=== PATIENT | male | born 1950 | race Caucasian/White ===

== ENCOUNTER 2018-07-04 15:46 | Inpatient (IN) | payer MEDICARE, MEDICAID ==
[~2018-07-04] VITALS: Ht 180.3 cm; Wt 126.0 kg
[~2018-07-04 15:46] MED LIST: CLINDAMYCIN HC300 MG PO; CLONIDINE HCL0.1 MG PO; DIAZEPAM5 MG PO; HYDROCHLOROTHIA25 MG PO; METFORMIN HCL500 MG PO; METHOCARBAMOL750 MG PO; NORCO 5-325 TA1 EACH PO; NORCO 7.5-3251 EACH PO; PERCOCET 5-3251 EACH PO; ULTRAM50 MG PO; [UNRECOGNIZED DRUG - REMARK]; [UNRECOGNIZED DRUG - REMARK]
--- NOTE | 2018-07-04 19:05 | NUR ---
PT ADMITTED TO ROOM 127. PT WAS ABLE TO TRANSFER HIMSELF TO THE BED FROM THE STRETCHER. PT SHORT OF BREATH WITH EXERTION. PT ON BIPAP AT FIO2 28%, SETTINGS 15/5. PT WAS ABLE TO STAND AT THE BEDSIDE AND USE THE URINAL. PT STATED "THE AIR IS TO HOT ON THE MASK". CALLED RT AND TURNED OFF HEAT PER RESPIRATORY THERAPY. VITALS COMPLETED. WILL CONTINUE TO CLOSELY MONITOR.
--- NOTE | 2018-07-04 19:15 | NUR ---
PT REPORT GIVEN TO PERFORATOR TYPIST RN. AWAITING MD ORDERS. NO OTHER QUESTIONS AT THIS TIME. WILL CONTINUE TO CLOSELY MONITOR.
--- NOTE | 2018-07-04 19:57 | NUR ---
HAD BIPAP ON AND ASKING THAT PRESSURE BE DECREASED. MASK OFF FOR BREAK AND TO OBTAIN HEALTH HISTORY. 02 2L NC APPLIED. STATES FEELS LIKE BREATHING IS BETTER BUT STILL HAS INCREASED WORK OF BREATHING. GIVEN SIPS WATER FOR COMFORT, INFORMED OF FLUID RESTRICTION. RT HERE FOR TO DO EKG, ALSO ADJUSTING BIPAP FOR PT COMFORT.
--- NOTE | 2018-07-04 20:56 | NUR ---
PT TO CCU PER BED, REPORT RECIEVED FROM MIRIAN GHOTRA. PT ALERT ORIENTED X3. NO C/O. DR THRASHER IN DEPT. WILL HOLD CARDIZEM GTT FOR NOW AND CONT TO MONITOR HR. PT INFORMED OF THIS. HAS FEW SCATTERED EXP WHEEZES THROGHOUT.
--- NOTE | 2018-07-04 22:02 | NUR ---
PT WAS NOTED TO BREATH EASIER WHEN SITTING AT SIDE OF BED. STATES SOMETIMES SLEEPS IN RECLINER. ABLE TO WALK AROUND BED TO RECLINER WITHOUT SOB. SAT IN RECLINER FOR ABOUT 1 HR AND ATE SANDWICH. BACK TO BED. HR 100-115.
--- NOTE | 2018-07-04 22:35 | NUR ---
PT ASLEEP, LAYING ON SIDE. SATS DECREASED TO 81%, 02 TITRATED UP TO 5LNC, SATS NOW 92-93%.
--- NOTE | 2018-07-04 23:48 | NUR ---
UP AT BEDSIDE TO VOID, PT THEN FELL ASLEEP SITTING AT SIDE OF BED. AWAKENS EASILY BUT FALLS BACK TO SLEEP QUICKLY. TALKED TO PT, TOLD HE CAN'T SLEEP AT SITTING AT SIDE OF BED IN CASE HE FALLS. PT AGREES. BACK TO CHAIR. NEITHER CHAIR NOR BED ARE COMFORTABLE FOR PT.
--- NOTE | 2018-07-05 01:12 | NUR ---
SLEEPING IN RECLINER.HR 80-100. RR 14-16.
--- NOTE | 2018-07-05 03:11 | NUR ---
HAS BEEN SLEEPING SOUNDLY IN RECLINER. AWAKE TO VOID. JENNA STANDING WELL. STATES HASN'T SLEPT WELL FOR ABOUT 2 WEEKS. HAS HAD FAMILY ISSUES THAT HAVE DISTRESSED PT. PT DOES NOT ELABORATE. PT IS ALSO VERY HARD OF HEARING SO COMMUNICATION IS DIFFICULT. FRIEND TO BRING GLASSESS AND HEARING AIDS LATER TODAY. PT CONT TO BE IN RECLINER AND FELL BACK TO SLEEP QUICKLY.
--- NOTE | 2018-07-05 03:36 | NUR ---
PT NOTED TO BE OCC COUGHING, CLEARING THROAT IN SLEEP. PT AWAKENED AND CALLED NURSE. STATED HE WAS CONFUSED, HAD AWAKENED AND DIDN'T KNOW WHERE HE WAS AND NEEDING TO GET OUT. PT CLEARED TALKING WITH STAFF. RT CALLED. PT STATES HE IS TOO CLAUSTROPHOBIC TO WEAR BIPAP. RT KYLE ASSISTED PT TO SLEEP LEANING FORWARD ON PILLOWS ON TRAY TABLE. THIS ALLOWS FOR LESS PRESSURE FROM LARGE ABD.
--- NOTE | 2018-07-05 03:53 | NUR ---
PT SLEEPING NEARLY SITTING UP,SLIGHTLY FORWARD. NOTED TO HAVE PERIODS OF APNEA LASTING GREATER THAN 30 SEC. SATS STAY HIGH 90'S.
--- NOTE | 2018-07-05 05:16 | NUR ---
IS ASLEEP LAYING BACK IN CHAIR. IS NOT HAVING PERIODS OF APNEA AT THIS TIME.
--- NOTE | 2018-07-05 05:39 | NUR ---
AWAKE, C/O L HAND CRAMPING, EASED WITH MOVEMENT AND GIVEN WARM BLANKET. C/O BEING HUNGRY THEN FELL BACK TO SLEEP.
--- NOTE | 2018-07-05 06:03 | NUR ---
STOOD TO VOID. BACK IN CHAIR, WILL FALL ASLEEP SUDDENLY, ROCK AND HAVE SLIGHT MUSCLE TWITCHING AND THEN AWAKEN. NOTED TO HAVE PERIODS OF APNEA ALSO. STRING CHEESE AT BEDSIDE FOR WHEN PT AWAKE HE STATES HE IS HUNGRY. NO FURTHER CRAMPING IN HAND.
--- NOTE | 2018-07-05 06:28 | NUR ---
DR THRASHER CALLED WITH UPDATE OF PT'S APNEA AND EPISODES OF CONFUSION. WILL DO ABG'S. T CALLED.
--- NOTE | 2018-07-05 06:54 | NUR ---
ABG'S DRAWN. PT NOW LAYING DOWN IN BED. EXPLAINED TO PT THAT HE WOULD QUIT BREATHING IN SLEEP AND THAT BEST TX WOULD BE TO WEAR BIPAP. ALSO EXPLAINED THAT ELEVATED C02 WOULD MAKE PT CONFUSED. PT DOES NOT WANT TO WEAR BIPAP.
--- NOTE | 2018-07-05 08:05 | NUR ---
ASSESSMENT COMPLETED. PT UP IN CHAIR LEANING FORWARD ON BEDSIDE TABLE. PT IS VERY HARD OF HEARING WITHOUT HIS HEARING AIDES- REQUIRES THIS RN TO REPEAT MYSELF FREQUENTLY WHEN PT ISN'T ABLE TO HEAR WHAT I SAY. PT IS A/O X4, DENIES ANY PAIN, N/V OR SOB- STATES HE "JUST WANTS TO GET OUT OF HERE." PT APPEARS ANXIOUS. HE'S ON 2 L/MIN O2 VIA NC. LUNGS ARE CLEAR THROUGHOUT ALL LOBES WITH BLL SLIGHTLY DIMINISHED. PT'S ABDOMEN IS VERY ROUNDED AND FIRM WITH ACTIVE BOWEL SOUNDS- PT STATES HIS LAST BM WAS YESTERDAY. HR IS IRREGULAR AND PT IS AFIB ON CONTINUOUS TELE. BLE EDEMA- EDUCATION ON ELEVATING EXTREMITIES BUT PT REFUSES AT THIS TIME SINCE IT'S "EASIER TO BREATHE" SITTING FORWARD. EDUCATION ON ALL MEDICATIONS PROVIDED. URINAL AT HIS SIDE LASIX WAS JUST GIVEN. PT'S BREAKFAST HAS ARRIVED. HE DENIES ANY FURTHER NEEDS AT THIS TIME. CALL LIGHT WITHIN REACH. WILL CONTINUE TO MONITOR.
--- NOTE | 2018-07-05 09:00 | NUR ---
PT REMAINS UP IN HIS RECLINER AFTER FINISHING HIS BREAKFAST (OMELETTE, CORN FLAKES). HE DENIES ANY NEEDS. CALL LIGHT WITHIN REACH. WILL CONTINUE TO MONITOR.
--- NOTE | 2018-07-05 10:06 | NUR ---
PT HAS MOVED TO HIS BED FOR HIS ECHOCARDIOGRAM TO BE COMPLETED. PT EDUCATION ON THE TEST. HIS BROTHER HAS JUST VISITED THE BEDSIDE WELL AND HAS BEEN UPDATED ON HOW PT IS DOING. THIS RN ASKED HIM IF HE COULD BRING PT'S HEARING AIDES IN- HE CONTACTED PT'S ROOMMATE WHO STATES HE WILL BE BRINGING THEM AND HIS GLASSES LATER TODAY. CONSTRUCTION FIELD ENGINEER IN ROOM AND JUST STARTED ECHO. CALL LIGHT WITHIN REACH. WILL CONTINUE TO MONITOR.
[2018-07-05] MEDS ORDERED: DOXAZOSIN MESYLA8 MG PO (10:54)
[2018-07-05] MEDS ORDERED: AMLODIPINE BESYL5 MG PO (10:55)
[2018-07-05] MEDS ORDERED: PRAVASTATIN SOD20 MG PO (10:55)
[2018-07-05] MEDS ORDERED: CARVEDILOL25 MG PO (10:56)
[2018-07-05] MEDS ORDERED: METFORMIN HCL500 M1 PO (10:56)
--- NOTE | 2018-07-05 10:57 | NUR ---
MED REC COMPLETE
--- NOTE | 2018-07-05 11:00 | NUR ---
PT SITTING UP ON EDGE OF BED VISITING WITH HIS BROTHER. WARM BLANKET PROVIDED PER HIS REQUEST. DENIES ANY OTHER NEEDS. CALL LIGHT WITHIN REACH. WILL CONTINUE TO MONITOR.
--- NOTE | 2018-07-05 11:55 | NUR ---
PT SITTING UP RECLINER. ASSESSMENT COMPLETED. PT'S ROOMMATE HAS BROUGHT HIS HEARING AIDES AND GLASSES SO PT IS ABLE TO HEAR BETTER. REMAINS A/O X4, DENIES PAIN OR N/V. STATES HE'S HAVING SOME SOB. PT REMAINS ON 2 L/MIN O2 VIA NC. HIS LUNGS ARE CLEAR THROUGHOUT EXCEPT SOME FINE CRACKLES IN RLL. OTHERWISE, NO CHANGE TO ASSESSMENT. BOWEL MEDICATIONS GIVEN MID MORNING- AWAITING BM. OT HAS JUST ARRIVED TO WORK WITH PT. HE DENIES ANY NEEDS AT THIS TIME. CALL LIGHT WITHIN REACH. WILL CONTINUE TO MONITOR.
--- NOTE | 2018-07-05 12:05 | NUR ---
OT IN ROOM WORKING WITH PATIENT
--- NOTE | 2018-07-05 13:00 | NUR ---
PT HAS JUST FINISHED HIS LUNCH; HE REMAINS UP IN HIS RECLINER WITH NO CONCERNS OR REQUESTS. DENIES ANY NEEDS TO BE MET. CALL LIGHT WITHIN REACH. WILL CONTINUE TO MONITOR.
--- NOTE | 2018-07-05 14:14 | NUR ---
PATIENT WORKING WITH PT IN THE HALLWAY AT THIS TIME.
--- NOTE | 2018-07-05 15:00 | NUR ---
PT CURRENTLY SITTING UPRIGHT BUT BACK IN HIS CHAIR, WITH HIS EYES CLOSED, NAPPING. NO SIGNS OF PAIN OR DISCOMFORT. O2 SATS REMAIN STABLE AND NO APNEIC EPISODES HAVE OCCURRED. CALL LIGHT IS WITHIN REACH. WILL CONTINUE TO MONITOR.
--- NOTE | 2018-07-05 15:27 | EKG ---
[facility] [address] [place], [place] [address] Signed Atrial fibrillation with rapid ventricular response Abnormal ECG No previous ECGs available Confirmed by FRACISCO THRASHER DO ([id number]) on 07/05/2018 3:27:33 PM Electronically Signed By: FRACISCO THRASHER DO 07/05/18 1527 PATIENT NAME: ROHINI MCLEAN Electrocardiogram DATE OF : 54 PHYSICIAN: FRACISCO THRASHER DO REPORT #: [id number] REPORT IS CONFIDENTIAL AND NOT TO BE RELEASED WITHOUT AUTHORIZATION
--- NOTE | 2018-07-05 16:00 | NUR ---
ASSESSMENT COMPLETED AGAIN AT THIS TIME. PT REMAINS UP IN HIS RECLINER WATCHING TV. HE DENIES ANY PAIN OR N/V. WHEN ASKED HOW HIS BREATHING FEELS, HE STATES THAT IT "FEELS OKAY" AND THAT "IT FEELS BETTER" WHEN ASKED HOW HIS BREATHING FEELS IN COMPARISON TO THIS MORNING. PT WAS IN HIGH SPIRITS IN REGARDS TO HIS AMBULATION IN THE HALLWAY WITH PHYSICAL THERAPY THIS AFTERNOON. LUNG BASES BOTH HAVE FINE CRACKLES. 2 L/MIN O2 VIA NC REMAINS IN PLACE WITH ADEQUATE O2 SATS. ABDOMEN REMAINS THE SAME, NO BM HAS OCCURRED. PIV IN LEFT AC REMAINS WNL - LASIX AND SALINE FLUSH GIVEN WITHOUT COMPLICATION. VS REMAIN STABLE. BLE PITTING EDEMA REMAINS. PT HAS HIS HEARING AIDES IN SO HE'S EASIER TO COMMUNICATE WITH. EDUCATION GIVEN BUT NEEDS REINFORCEMENT. DENIES ANY NEEDS AT THIS TIME. CALL LIGHT WITHIN REACH. WILL CONTINUE TO MONITOR.
--- NOTE | 2018-07-05 17:10 | NUR ---
SOMEWHAT RESTLESS. NO FUTHER CHANGES.
--- NOTE | 2018-07-05 17:14 | NUR ---
DISCUSSED PT DC PLAN WITH HIM AND HE CHOOSES TO RETURN HOME UPON DC AT THIS TIME HE JUST WANTS TO RIDE HIS MOTORCYCLE AGAIN. STATES HE IS SCHEDULED FOR AN APPT WITH DR RUVALCABA TOMORROW, REQUESTED IF I COULD CALL AND TELL THEM HE IS HERE. I CALLED AND LEFT A MESSAGE WITH THE LAMBSKIN TRIMMER AT [facility] FOR DR RUVALCABA THAT THE PT IS HERE IN THE HOSPITAL AND IN ICU AND WOULD BE UNABLE TO MAKE HIS APPT TOMORROW. THE OPERATORS NAME WAS IDA.
--- NOTE | 2018-07-05 17:20 | NUR ---
PT SITTING UP IN RECLINER. NO CHANGES. NO REQUESTS AND DENIES ANY NEEDS AT THIS TIME.
--- NOTE | 2018-07-05 18:08 | NUR ---
FULL BED BATH COMPLETE WITH ENCOURAGEMENT TO BE COMPLETED BY THIS RN. PATIENT COMPLETED BY HIMSELF BUT THIS RN ASSISTED WITH HIS BACK/BUTTOCKS. STANDING WEIGHT ALSO COMPLETED. AWAITING HIS DINNER TO BE DELIVERED.
--- NOTE | 2018-07-05 20:16 | NUR ---
PT SLEEPING SITTING UP IN RECLINER. AWAKENS EASILY BUT FALLS BACK TO SLEEP VERY QUICKLY. RESP ARE IRREGULAR WHILE ASLEEP. UPPER ABD IS SOMEWHAT SOFTER TONIGHT. DOES USE ABD MUSCLES ON EXPIRATION. NO IMPROVEMENT EDEMA LOWER EXTREMITIES PT KEEPS LEGS DEPENDENT.
--- NOTE | 2018-07-05 20:42 | NUR ---
MEDS GIVEN. PT STATES HE IS HUNGRY, WILL GET SANDWICH BOX FOR PT. DR THRASHER GIVEN UPDATE.
--- NOTE | 2018-07-05 21:23 | NUR ---
PT HAD TRIED LAYING DOWN IN BED TO SLEEP. NOTED HE WOULD NEED TO CLEAR THROAT/COUGH AND THEN PT UP IN CHAIR. "I FEEL LIKE I WANT TO GO TO SLEEP BUT I CAN'T. I FEEL LIKE I NEED TO GET UP" EXPLAINED THIS WAS DUE TO HIS SLEEP APNEA AND THAT HE WAS AWKAENING SELF TO BREATH. PT AGREEABLE TO TRY BIPAP AGAIN. RT CALLED.
--- NOTE | 2018-07-05 21:58 | NUR ---
PT IN CHAIR, RT HERE PT WILLING TO TRY BIPAP. RT KYLE WILL HOLD BIPAP MASK IN PLACE WITHOUT CLASPING IT TO TRY TO HELP PT ADJUST AND RELAX. PT WILL PANIC AFTER ABOUT [address] THRASHER CALLED. ORDER FOR VISTARYL RECIEVED. PT DURING THIS TIME DID WEAR BIPAP FOR ABOUT 2-3 MIN BEFORE PANICKING. VISTARYL 50MG PO GIVEN. 02 RE-APPLIED AND WILL TRY AGAIN AFTER IT STARTS TO WORK.
--- NOTE | 2018-07-05 22:56 | NUR ---
PT HAS BEEN SLEEPING. AWAKENED TO APPLY BIPAP. IS SOMEWHAT DISORIENTED WHEN FIRST AWAKE BUT DIRECTABLE. SPOKE WITH RT ABOUT RESULTS OF ECHOCARDIAGRAM AND WILL CHANGE SETTINGS TO CPAP.
--- NOTE | 2018-07-05 23:49 | NUR ---
PT WORE BIPAP (WAS CHANGED BACK TO BIPAP ER RT) FOR ABOUT 30MIN. PT EVEN TRIED USING IT IN BED. PT WOULD LIKE TO LAY DOWN BUT IS UNABLE TO HIS SLEEP APNEA AWAKENS HIM AND HE BECOMES ANXIOUS. UNABLE TO WEAR BIPAP CUE TO CLAUSTAPHOBIA. HE FEELS LIKE HE IS BEING SUFFICATED DESPITE THE AIR MOVEMENT. BACK IN RECLINER CHAIR WITH [address] PT IS VERY FRUSTRATED HE KNOWS HE NEEDS TO SLEEP.
--- NOTE | 2018-07-06 00:24 | NUR ---
PT IS FRUSTRATED THAT HE IS UNABLE TO SLEEP. HAS TRIED EVEN LEANING ON TRAY TABLE WITH PILLOWS. DR THRASHER CALLED.
--- NOTE | 2018-07-06 01:00 | NUR ---
FELL ASLEEP SITTING ON EDGE OF CHAIR, NOW SITTING BACK IN CHAIR AND ASLEEP.
--- NOTE | 2018-07-06 03:00 | NUR ---
CONT TO SLEEP IN RECLINER. HR 80'S. RESP ARE SHALLOW BUT SATS ARE UPPER 90'S.
--- NOTE | 2018-07-06 04:27 | NUR ---
AWAKE TO VOID. BRIEF ASSESSMENT DONE. GIVEN WARM BLANKET C/O BEING COLD.
--- NOTE | 2018-07-06 05:00 | NUR ---
SLEEING IN CHAIR WITH HEAD ON TRAY TABLE. WHEN FIRST GOING TO SLEEP IS RESTLESS AND HAS INC EPISODES OF APNEA. NOTED WHEN SOUNDLE ASLEEP IN CHAIR EARLIER REST WERE SLOW AND SL SHALLOW BUT NO APNEA. SEEMS TO HAVE MORE DIFFICULTY IN EARLY PHASES OF SLEEP.
--- NOTE | 2018-07-06 06:25 | NUR ---
CURRENTLY SLEEPING CHAIR. SATS 93-99%. HR 70'S-80'S.
--- NOTE | 2018-07-06 07:26 | NUR ---
PT CURRENTLY SITTING UP, LEANING BACK IN RECLINER WITH HIS EYES CLOSED RESTING. NO SIGNS OF PAIN. RESPIRATIONS 12 WITH 2 L/MIN O2 VIA NC IN PLACE. WILL LET PT CONTINUE TO REST. CALL LIGHT WITHIN REACH. WILL CONTINUE TO MONITOR.
--- NOTE | 2018-07-06 08:40 | NUR ---
ASSESSMENT COMPLETED AT THIS TIME; PT SITTING UP IN RECLINER PREPPING TO EAT BREAKFAST THAT WAS BROUGHT. PT IS PLEASANT, CALM AND COOPERATIVE. HE PUT HIS HEARING AIDES IN AT THIS TIME- MUCH IMPROVED HEARING. A/O X4, DENIES ANY PAIN, N/V OR SOB. WHEN ASKED ABOUT HOW HIS BREATHING FEELS, HE STATES THAT IT "FEELS FINE RIGHT NOW." HE IS SLIGHTLY DROWSY THIS MORNING. 2 L/MIN O2 VIA NC IN PLACE WITH ADEQUATE O2 SATS. CLEAR LUNG SOUNDS EXCEPT SOME FINE CRACKLES HEARD IN THE RLL. ABDOMEN REMAINS VERY TAUT AND DISTENDED- EDUCATION GIVEN ON TRYING SUPPOSITORY THIS MORNING AFTER BREAKFAST. PT AGREEDS BUT STATES HE FEELS THOUGH HE HAS A BM COMING "SOON." PT'S EDEMA REMAINS IN HIS BLE AND FEET. PIV IN LEFT AC WNL- FLUSHES WELL, LASIX GIVEN. PT DENIES ANY NEEDS AT THIS TIME. HE'S STARTING HIS BREAKFAST. CALL LIGHT WITHIN REACH. WILL CONTINUE TO MONITOR.
--- NOTE | 2018-07-06 09:20 | NUR ---
PT HAS FINISHED 100% OF HIS BREAKFAST AND HAS FALLEN ASLEEP SITTING UP IN HIS RECLINER. I'LL LET PT REST FOR A BIT LONGER, AND IN A WHILE SEE IF PT IS READY FOR HIS SUPPOSITORY. CALL LIGHT WITHIN REACH. WILL CONTINUE TO MONITOR.
--- NOTE | 2018-07-06 10:04 | NUR ---
STAND BY ASSIST TO TOILET PER HIS REQUEST TO TRY AND HAVE BM OPPOSED TO GET A SUPPOSITORY. LARGE, HARD BROWN BM WAS HAD WELL MORE URINE. PT REQUESTS TO GET BACK INTO BED FOR A NAP. PT NOW LAYING IN BED WITH HOB AT 45 DEGREES. DENIES ANY NEEDS AT THIS TIME. VS REMAIN STABLE ON TELE. CALL LIGHT WITHIN REACH. WILL CONTINUE TO MONITOR.
--- NOTE | 2018-07-06 11:04 | NUR ---
PT UP TO RECLINER AFTER RESTING IN BED FOR A WHILE. VS REMAIN STABLE. NEW MEDICATIONS ADDED BY DR. THRASHER HAVE BEEN GIVEN. PT DENIES ANY NEEDS AT THIS TIME. CALL LIGHT WITHIN REACH. WILL CONTINUE TO MONITOR PT WELL HIS TELE AFTER THE NEW MEDS WERE ADMINISTERED.
--- NOTE | 2018-07-06 12:14 | NUR ---
ASSESSMENT JUST COMPLETED. NO CHANGES. PT CONTINUES TO DENY PAIN, N/V OR SOB. SITTING UP IN THE RECLINER VISITING WITH HIS ROOMATE. LUNCH HAS JUST ARRIVED WELL TELECOM COORDINATOR TO START EDUCATION WITH THE PT. PT DENIES ANY NEEDS. CALL LIGHT WITHIN REACH. WILL CONTINUE TO MONITOR.
--- NOTE | 2018-07-06 13:11 | NUR ---
Patient asked for help getting up to the bathroom. He was steady on his feet, standby assist. Had a large BM and some urine output. Back to the chair.
--- NOTE | 2018-07-06 13:34 | NUR ---
PARADISE DOUGLAS REQUESTED I LET PT REST. HE HAS HAD A DIFFICULT TIME GETTING THE REST HIS BODY NEEDS. WILL FOLLOW NEEDED
--- NOTE | 2018-07-06 14:00 | NUR ---
PT IS UP IN RECLINER, EYES CLOSED AND NAPPING. HE FINISHED WALKING HALLWAY WITH PHYSICAL THERAPIST ABOUT 15 MINUTES AGO, AND PER PT, PT DROPPED TO 87% O2 SAT ON ROOM AIR WITH AMBULATION. NO SIGNS OF ANY DISCOMFORT PT SITS IN RECLINER- HIS CONTINUOUS TELE AND PULSE OX WNL. CALL LIGHT WITHIN REACH. WILL CONTINUE TO MONITOR.
--- NOTE | 2018-07-06 14:55 | NUR ---
Certified Heart Failure Nurse Notes: Diagnosis: Afib and CHF Radio Division Captain- not on admit PCP: Amilcar Brunson Date of echocardiogram 07/05/18 Phill Inhibitor for LVSD prescribed Beta Jennifer ordered Admit Wt.: 296 lb Patient unable to state dry weight but believes it is around 300lb Admit BNP: Social support system: Roommate and brother in law Pagan is currently at bedside. No other support system identified at this time. Weight monitoring: No scale present in home. Explained to patient rationale for QD weights. Patient states he will accept a scale to take home. Symptom management: Specic recommendations to follow-up for ongoing management briefly discussed. Transportation mode: Latasha states that it is not a problem Diet: Usual meals include mac and cheese, lots of cheese, lunch meats, meat. Patient states "no vegetables" Shopping and cooking duties are shared 50/50 with Latasha Usual physical activity: None over the winter. Importance of initiating cardio activity introduced to patient Medication routine: Patient states he may have 7 day pill box but doesnt know where it is located, roommate identifies self as one that reminds patient to take meds. But then patient replied he was in hospital because he wasn't doing what he was suppose to. Tobacco: former Advanced directive: Not discussed at this initial visit Recommendations prior to discharge: Document ambulation oxygen saturations prior to discharge Absence of orthostatic hypotension. Discharge weight less than admit weight. Discharge BNP less than admit (as per [facility] Heart Failure DC Bundle) Barriers to self-care include: Knowledge deficit of disease process and diet Self-Management Goal: Not identified by patient Follow-up plans: Ensure patient is not taking OTC NSAIDS Dieticain consult Give pill box reminder prior to DC Follow up call post DC and schedule patient to return for OP HF ed Given Medline 440lb scales and [facility] contact information
--- NOTE | 2018-07-06 15:15 | NUR ---
SHOWER TAKEN AT THIS TIME WITH RN ASSIST. LINENS CHANGED. PT WAS KEPT ON PORTABLE O2 FOR THE SHOWER- AFTER A FEW MINUTES OF EXRTION IN THE SHOWER PT WAS SOB/TACHYPNEIC. RESPIRATIONS RETURNED TO NORMAL AFTER RETURNING TO HIS ROOM AND RECLINER. CURRENTLY RESTING WITH EYES CLOSED. DENIES ANY NEEDS. CALL LIGHT WITHIN REACH. WILL CONTINUE TO MONITOR.
--- NOTE | 2018-07-06 16:04 | NUR ---
NO CHANGES TO PT ASSESSMENT- HE REMAINS UP IN RECLINER POST SHOWER. HE DENIES ANY PAIN, N/V, OR SOB (SOME SOB AFTER SHOWER BUT SUBSIDED WITHIN MINUTES). PT HAS BEEN WEANED DOWN TO 1 L/MIN O2 VIA NC. O2 SATS ADEQUATE AT 96%. HE CONTINUES TO HAVE ADEQUATE URINE OUTPUT. PT VISIBLY TIRED AFTER EXERTING HIMSELF FOR THE SHOWER. THIS RN ASSISTED HIM THOUGH. HE DENIES ANY NEEDS OTHER THAN TIME FOR REST. CALL LIGHT WITHIN REACH. WILL CONTINUE TO MONITOR.
--- NOTE | 2018-07-06 17:05 | NUR ---
PT ASLEEP IN RECLINER- ALL NUMBERS ARE WNL ON CONTINUOUS TELE. CHEST RISING/FALLING AT A STEADY MANOR. REMAINS ON 1 L/MIN O2 VIA NC. CALL LIGHT WITHIN REACH. WILL CONTINUE TO MONITOR.
--- NOTE | 2018-07-06 17:35 | NUR ---
THIS RN WOKE PT UP FROM HIS NAP FOR HIM TO EAT HIS DINNER WHICH JUST ARRIVED. HE FEELS THOUGH HE'S GETTING GOOD REST TODAY. DENIES ANY NEEDS RIGHT NOW. HAS STARTED HIS DINNER. CALL LIGHT WITHIN REACH. WILL CONTINUE TO MONITOR.
--- NOTE | 2018-07-06 18:16 | NUR ---
PT HAD 100% OF DINNER; NOW RESTING IN HIS RECLINER. DENIES ANY NEEDS. STATES HE FEELS COMFORTABLE. CALL LIGHT WITHIN REACH. WILL CONTINUE TO MONITOR.
--- NOTE | 2018-07-06 19:30 | NUR ---
RECEIVED REPORT AT 1900, PT WAS IN BED AWAKE. NO NEW CONCERNS NOTED SO FAR.
--- NOTE | 2018-07-06 20:00 | NUR ---
V/S ARE WDL, LOBES ARE CLEAR, HEART SOUNDS ARE DISTANT, ABD IS DISTENDED AND FIRM TO TOUCH, LORE LOWER LEG/ANKLE/FOOT EDEMA +2, PEDIS PULSES ARE FAINT DUE TO EDEMA BUT CAP REFILL IS WDL. PT IS REFUSEING BI-PAP TONIGHT AND WANTS TO SLEEP IN THE CHAIR. URINE OUTPUT SO FAR IS ADEQUATE. FLUID RESTRICTION IS BEING FOLLOWED PER ORDER. NO NEW CONCERNS NOTED AT THIS TIME.
--- NOTE | 2018-07-06 21:44 | NUR ---
PT AT THIS TIME IS SLEEPING. O2 WAS TURNED UP TO 2L NC SINCE O2 SATS WERE AROUND 89%. NO NEW CONCERNS NOTED SO FAR.
--- NOTE | 2018-07-06 22:25 | NUR ---
PT AT THIS TIME IS AWAKE AND SITTING ON SIDE OF BED. PT IS FEELING A BIT ANXIOUS AT THIS TIME BUT STATED TO ME THAT HE HAS NO NEEDS AT THIST TIME. WILL CONTINUE TO MONITOR.
--- NOTE | 2018-07-06 23:17 | NUR ---
PT AT THIS TIME IS SLEEPING SITTING UP IN CHAIR AND LEANING ON THE BEDSIDE TABLE. V/S ARE WDL.
--- NOTE | 2018-07-07 | NUR ---
PT AT THIS TIME IS STILL SLEEPING. PT WAS WOKEN UP FOR ASSESSMENT. LOBES ARE CLEAR, ALL OTHER FINDINGS ARE UNCHANGED FROM PREVIOUS ASSESSMENT. WILL CONTINUE TO MONITOR.
--- NOTE | 2018-07-07 02:00 | NUR ---
PT AT THIS TIME IS SITTING IN CHAIR AND SLEEPING FOR THE MOST PART. NO NEW CONCERNS NOTED SO FAR.
--- NOTE | 2018-07-07 04:00 | NUR ---
PT IS SLEEPING AT THIS TIME. PT WAS WOKEN UP FOR ASSESSMETN. ALL LOBES ARE CLEAR. EDEMA IS UNCHANGED SINCE START OF THIS SHIFT. V/S OVERALL ARE WDL. URINE OUTPUT IS ADEQUATE.
--- NOTE | 2018-07-07 06:39 | NUR ---
OVERALL PT HAD AN UNEVENTFUL NIGHT. LUNG LOBES WERE CLEAR ALL NIGHT. ABD IS STILL FIRM AND DISTENDED. PT STATED HOWEVER THAT HIS ABD FEELS MUCH BETTER OVERALL. V/S OVERALL ARE WDL, PT SLEPT MOST OF THIS SHIFT. PERIPHERAL EDEMA IN LOWER LEGS/ANKLES/FEET IS +2, PEDIS PULSES +1. PT HAS DENIED SOB ALL SHIFT. URINE OUTPUT IS ADEQUATE. NO NEW CONCERNS NOTED SO FAR. STANDING WEIGHT TODAY WAS 283LBS.
--- NOTE | 2018-07-07 07:10 | NUR ---
REPORT RECEIVED IZABELLA CCU OVER PHONE.
--- NOTE | 2018-07-07 07:51 | NUR ---
PT ARRIVE TO FLOOR WITH SBA. DENEIS PAIN. IS AAOX3. ORIENTED TO ROOM. CALL LIGHT IN REACH. DENIES NEEDS AT THIS TIME.
--- NOTE | 2018-07-07 09:40 | NUR ---
SBA TO BATHROOM. VOIDED 250, 1 MED BM. BACK TO CHAIR. CALL LIGHT IN REACH. DENIES FURTHER NEEDS.
--- NOTE | 2018-07-07 10:14 | NUR ---
CHW CONTACTED DR RUVALCABA OFFICE. PATIENT HAS NOT BEEN SEEN BY PROVIDER IN 3 YEARS. THEY WILL REVIEW WITH DR RUVALCABA IF HE WOULD BE WILLING TO ACCEPT PATIENT FOR FOLLOW UP TO THE HOSPITALIZATION. CHW BROUGHT CURRENT INPATIENT RECORDS TO [facility] TO SEE IF PATIENT CAN HAVE A FOLLOW UP APT WITH THE CLINIC AFTER PATIENT LEAVES THE HOSPITAL. THEY WILL REVIEW AND CONTACT CHW AFTER REVIEW.
--- NOTE | 2018-07-07 10:22 | NUR ---
DID PATIENT'S BLOOD SUGAR CHECK BEFORE HE ATE BREAKFAST AFTER HE TRANSFERED FROM CCU. PATIENT SITTING UP IN HIS CHAIR SLEEPING. SAID HE DOESN'T WANT TO TAKE A SHOWER TODAY BUT PROBABLY TOMORROW.
--- NOTE | 2018-07-07 11:28 | NUR ---
PT UP IN HALLS WORKING WITH PHYSICAL THERAPY.
--- NOTE | 2018-07-07 12:27 | NUR ---
LEMUEL RECEIVED CALL BACK FROM DR RUVALCABA OFFICE. PATIENT HAS AN APT TO BE SEEN FOR FOLLOW UP ON Wednesday07/11/18 @ 2:30PM. CHW NOTIFIED ELLIE IN CASE MANAGEMENT.
--- NOTE | 2018-07-07 14:15 | NUR ---
SPOKE WITH PATIENT IN ROOM. DISCUSSED THAT OUR CHW WILL WORK WITH HIM TO GET A LOCAL PCP, BUT THAT THIS WILL NOT BE POSSIBLE TO GET ONE SOON ENOUGH TO FOLLOW UP AFTER DISCHARGE HE SHOULD BE SEEN WITHIN A WEEK-10 DAYS. DISCUSSED THAT HIS OLD PCP DR RUVALCABA IS WILLING TO SEE HIM ON Wednesday07/11/18 AT 2:30PM. HE STATES HE WILL GO AHEAD AND SEE HIM, AND THAT HE HAS A RIDE. HE DOES WANT TO THEN WORK WITH CHW TO FIND A LOCAL PCP STATING "GETTING OVER TO [place] IS NOT EASY SOMETIMES". DISCUSSED THAT HE SHOULD HAVE A CLEAR UNDERSTANDING OF DIAGNOSIS AND MEDICATIONS AND SIDE EFFECTS BEFORE DISCHARGE. HE STATES HE UNDERSTANDS. PLAN WILL BE FOR CHW F/U AFTER DISCHARGE.
--- NOTE | 2018-07-07 18:20 | NUR ---
TRANSFER FROM CCU. IV LASIX. 2+EDEMA IN LE. ABDOMEN FIRM AND ROUND. 2LNC AT NIGHT. PT REFUSES BIPAP. SOB WITH AMBULATION. FINE CRACKLES IN BASES. DAILY WEIGHT. FLUID RESTRICTIONOF 1800ML.
--- NOTE | 2018-07-07 19:11 | NUR ---
IN ROOM FOR REPORT, PT IS AWAKE IN BED AND DENIES NEEDS AT THIS TIME. CALL LIGHT IS WITHIN REACH.
--- NOTE | 2018-07-07 21:05 | NUR ---
ASSESSMENT COMPLETE AND MEDICATIONS ADMINISTERED. PT DENIES PAIN. HE IS ON 2LNC WHILE SLEEPING. BP RUNS SOFT AND PT DENIES SYMPTOMS UNLESS HE STANDS TOO QUICKLY WHICH HE STATES IS BASELINE FOR HIM. PT DENIES FURTHER NEEDS AT THIS TIME. CALL LIGHT IS WITHIN REACH.
--- NOTE | 2018-07-07 23:10 | NUR ---
PT IS RESTING WITH EYES CLOSED, RESPIRATIONS ARE EVEN AND NONLABORED. CALL LIGHT IS WITHIN REACH.
--- NOTE | 2018-07-08 00:35 | NUR ---
PT IS RESTING WITH EYES CLOSED, RESPIRATIONS ARE EVEN AND NONLABORED. CALL LIGHT IS CLOSE.
--- NOTE | 2018-07-08 02:13 | NUR ---
PT IS RESTING WITH EYES CLOSED, RESPIRATIONS ARE EVEN AND NONLABORED. CALL LIGHT IS WITHIN REACH.
--- NOTE | 2018-07-08 04:05 | NUR ---
PT IS RESTING WITH EYES CLOSED, RR IS EVEN AND NONLABORED. CALL LIGHT IS CLOSE.
--- NOTE | 2018-07-08 05:25 | NUR ---
PT IS AWAKE IN BED, HE DENIES NEEDS AT THIS TIME. CALL LIGHT IS CLOSE.
--- NOTE | 2018-07-08 07:30 | NUR ---
REPORT RECEIVED FROM CERTIFIED NURSES AIDE RN. PT LYING IN BED WITH EYES CLOSED. RESPIRATIONS EQUAL AND NONLABORED. CALL LIGHT IN REACH.
--- NOTE | 2018-07-08 08:15 | NUR ---
PATIENT RESTING IN BED. SETS UP BATHROOM FOR SHOWER. CALL LIGHT WITHIN REACH. NO OTHER NEEDS AT THIS TIME
--- NOTE | 2018-07-08 09:47 | NUR ---
PATIENT SITTING UP IN BED. FRIEND IN ROOM. VITAL SIGNS AND I&O DONE.CALL LIGHT WITHIN REACH. NO OTHER NEEDS AT THIS TIME
--- NOTE | 2018-07-08 12:00 | NUR ---
PT UP TO CHAIR FOR LUNCH, 2L NC FOR OWN COMFORT. SATURATION 97%. PT DENIES PAIN, CALL LIGHT IN REACH.
--- NOTE | 2018-07-08 13:40 | NUR ---
PATIENT SLEEPING. VITAL SIGNS DONE BY RN. I&O DONE. CALL LIGHT WITHIN REACH. NO OTHER NEEDS AT THIS TIME
--- NOTE | 2018-07-08 17:00 | NUR ---
PT UP TO CHAIR FOR DINNER. DENIES NEEDS. BS TAKEN AND WNL. NO INSULIN GIVEN. CALL LIGHT IN REACH. VISITOR AT BEDSIDE.
--- NOTE | 2018-07-08 17:10 | NUR ---
PATIENT SITTING UP IN CHAIR. VITAL SIGNS AND I&O DONE. CALL LIGHT WITHIN REACH. NO OTHER NEEDS AT THIS TIME
--- NOTE | 2018-07-08 19:26 | NUR ---
REPORT RECEIVED, PT RESTING IN BED, AOX4, APPROPRIATE, IV SL, FLUSHES WELL, PT HAS 605 MLS REMAINING OF PO FLUID AVAILABLE TO HIM FOR THIS SHIFT PER FLUID RESTRICTION. PT DENIES NEEDS AT THIS TIME, ON 2LNC, NO C/O SOB/CP, CALL LIGHT WITHIN REACH.
--- NOTE | 2018-07-08 20:34 | NUR ---
VITALS AND I&OS DONE AND CHARTED. BEDSIDE TABLE AND CALL LIGHT IN REACH. PT NEEDS NOTHING MORE AT THIS TIME.
--- NOTE | 2018-07-08 20:49 | NUR ---
EVENING MEDS GIVEN, PT AOX4, APPROPRIATE, PLEASANT, PT SITTING UP IN BED, HAS BEEN AMBULATING IN ROOM INDEPENDENTLY WELL, PT'S LS CLEAR, SOME FINE CRACKLES IN BASES, REMAINS ON 2LNC, NO C/O SOB/CP, VSS, HEART SOUNDS REGULAR, PULSES STRONG IN BUE, FAINT IN BLE, 2+ PITTING EDEMA IN BLE, CAP REFILL WNL, PT'S ABDOMEN TIGHT, DISTENDED, PT VOIDING WELL, BT DISTANT BUT ACTIVE, PT DENIES ANY NUMBNESS OR TINGLING, DENIES ANY PAIN, IV FLUSHED, BACITRACIN APPLIED TO SKIN TEAR ON LEFT ELBOW, SKIN TEAR APPEARS TO BE HEALING, SOME REDNESS BUT NO SIGNS OF DRAINAGE, NEW NONADHERENT GAUZE APPLIED. PT DENIES ANY PAIN, NO REQUESTS AT THIS TIME, CALL LIGHT WITHIN REACH. FALL PRECAUTIONS IN PLACE.
--- NOTE | 2018-07-08 22:00 | NUR ---
PT RESTING IN BEDSIDE CHAIR, NO REQUESTS AT THIS TIME, ON 2LNC, NO C/O SOB/CP, CALL LIGHT WITHIN REACH.
--- NOTE | 2018-07-08 22:27 | NUR ---
VS and I&O's were completed by PARADISE Guillaume.
--- NOTE | 2018-07-08 22:34 | NUR ---
RECEIVED REPORT FROM MIRIAN GHOTRA. PT IS RESTING WITH EYES CLOSED, RESPIRATIONS ARE EVEN AND NONLABORED ON 2LNC. CALL LIGHT IS WITHIN REACH.
--- NOTE | 2018-07-09 00:31 | NUR ---
PT IS RESTING WITH EYES CLOSED IN THE RECLINER, RESPIRATIONS ARE EVEN AND NONLABORED. CALL LIGHT IS CLOSE.
--- NOTE | 2018-07-09 01:58 | NUR ---
PT IS RESTING WITH EYES CLOSED IN BED, RESPIRATIONS ARE EVEN AND NONLABORED. CALL LIGHT IS WITHIN REACH.
--- NOTE | 2018-07-09 03:40 | NUR ---
PT IS RESTING WITH EYES CLOSED, RESPIRATIONS ARE EVEN AND NONLABORED. CALL LIGHT IS WITHIN REACH.
--- NOTE | 2018-07-09 05:18 | NUR ---
PT IS AWAKE IN THE CHAIR, ASKED HIM IF HE HAD TROUBLE SLEEPING AND HE SAID HE JUST FELT LIKE GETTING UP. HE DENIES PAIN AND SOB AT THIS TIME HE STILL HAS THE 2 LNC ON. HE DENIES FURTHER NEEDS AT THIS TIME. CALL LIGHT IS CLOSE.
--- NOTE | 2018-07-09 05:46 | NUR ---
pts I&O's, DW and VS complete. He doesnt need anything at this time.
--- NOTE | 2018-07-09 07:10 | NUR ---
REPORT RECEIVED FROM PARADISE LYNN. PT UP TO CHAIR. PT DENIES PAIN AND NAUSEA. O2 AT 2L BY NC IN PLACE. PT ENCOUAGED TO ELEVATE FEET. PT TOELRATING FLUID RESTRICTION. PT DENIES ADDITIONAL REQUESTS OR COMPLAINTS AT THIS TIME. CALL LIGHT WITHIN REACH.
--- NOTE | 2018-07-09 07:29 | NUR ---
PATIENT SITTING UP IN CHAIR. LINENS CHANGED. SETS UP BATHROOM FOR SHOWER. CALL LIGHT WITHIN REACH. NO OTHER NEEDS AT THIS TIME
--- NOTE | 2018-07-09 07:49 | NUR ---
MORNING ASSESSMENT AND MEDICATION DUE. THIS RN TO BEDSIDE. PT UP TO CHAIR. PT NO LONGER HAS FEET ELEVATED. PT STATES "I JUST DON'T LIKE THEM UP." PT DENIES PAIN AND NAUSEA. ASSESSMENT DONE. CRACKELS IN LOWER LOBES NOTED. COUGHT AND DEEP BREATHING ENCOURAGED. O2 SATURATION AT 100%. PT WEANTED TO ROOM AIR. PT MAINTAINING O2 SATURATIONS ON ROOM AIR ABOVE 94%. PT STATES, "I JUST GET WORRIED WHEN I'M ALONE AND THEN I CAN'T BREATH AND I NEED OXYGEN." CHF EDUCATION DONE WITH PT. PT STATES HE IS IN THE "GREEN" ZONE TODAY. PT SHOWN HOW TO RECORD ZONE AND WEIGHT EVERY DAY. PT DEMONSTRATES UNDERSTANDING. MEDICATIONS GIVEN. PT EATING BREAKFAST. CALL LIGHT WITHIN REACH.
--- NOTE | 2018-07-09 08:57 | NUR ---
PATIENT SITTING UP IN CHAIR. VITAL SIGNS AND I&O DONE. CALL LIGHT WITHIN REACH. NO OTHER NEEDS AT THIS TIME
--- NOTE | 2018-07-09 09:15 | NUR ---
THIS RN TO ROOM TO CHECK ON PT. PT UP TO COUCH. PT RESTING WITH EYES CLOSED. RESPIRATIONS EVEN AND UNLABORED, RR = 18 BPM. CALL LIGHT WITHIN REACH.
--- NOTE | 2018-07-09 11:02 | NUR ---
THIS RN TO ROOM TO CHECK ON PT. PT READING ON PHONE, SITTING ON COUCH. O2 SATURATION 94% ON ROOM AIR. DRESSING ON SKIN TEAR OF LEFT ELBOW IS LOOSE. DRESSING REPLACED. PT ASSITED WITH ORDERING LUNCH. PT DENIES PAIN AND NAUSEA. CALL LIGHT WITHIN REACH. NO FURTHER REQUESTS OR COMPLAINTS AT THIS TIME.
--- NOTE | 2018-07-09 12:02 | NUR ---
NOON ASSESSMENT AND MEDICATION DUE. THIS RN TO BEDSIDE. PT SITTING ON EDGE OF BED EATING LUNCH. CBG TAKEN BY PARADISE PARR. PT DENIES PAIN AND NAUSEA. ASSESSMENT DONE. MINIMAL CRACKELS NOTED IN LOWER LOBES. PT TOELRATING ROOM AIR WITH O2 SATURATIONS ABOVE 92%. SWELLING CONTINUES IN BLE. MEDICATION GIVEN. PT DENIES ADDITIONAL REQUESTS OR COMPLAINTS AT THIS TIME. [facility].
--- NOTE | 2018-07-09 13:00 | NUR ---
PATIENT SITTING UP IN THE EDGE OF THE BED. VITAL SIGNS AND I&O DONE. PATIENT COMPLAINS ABOUT HE CAN NOT LIE DOWN IN BED BECAUSE HE FEELS THAT HE IS SHORT OF BREATH. RN NOTIFIED. CALL LIGHT WITHIN REACH. NO OTHER NEEDS AT THIS TIME
--- NOTE | 2018-07-09 13:00 | NUR ---
ANTIQUE REPAIRER INFOMRED THIS RN THAT PT WOULD LIKE TO NAP BUT HE IS NERVOUS "BECAUSE I CAN'T BREATH." THIS RN TO ROOM. PT STATES HE WOULD LIKE TO PLACE O2 WHILE HE NAPS. O2 SATURATION 95% ON ROOM AIR. MD TO BEDSIDE FOR ROUNDS. PT ANTICIPATING DISCHARGE. CHF EDUCATION DONE. PT VERBALIZES UNDERSTANDING. PT UP TO SHOWER INSTEAD OF NAP. PT DENIES SOB. PT PLANS TO DRESS AFTER SHOWER. NO ADDITIONAL REQUESTS OR COMPLAINTS AT THIS TIME. PT DEMONSTRATES USE OF CALL LIGHT.
[2018-07-09] MEDS ORDERED: ELIQUIS5 MG PO (13:31)
[2018-07-09] MEDS ORDERED: CARVEDILOL25 MG PO (13:32)
[2018-07-09] MEDS ORDERED: ASPIR 8181 MG PO (13:33)
[2018-07-09] MEDS ORDERED: FUROSEMIDE80 MG PO (13:38)
[2018-07-09] MEDS ORDERED: POTASSIUM CHLO10 ME1 PO (13:42)
--- NOTE | 2018-07-09 14:25 | NUR ---
PATIENT SITTING UP IN CHAIR. PATIENT IS DRESS. FINAL VITAL SIGNS WERE OBTAINED PRIOR TO DISCHARGE FROM THE UNIT
--- NOTE | 2018-07-09 14:40 | NUR ---
PT READY FOR DICHARGE. PT DRESSED AND AWAITING INSTRUCTIONS. PT DENIES PAIN AND NAUSEA. PIV DC'D PER PROTOCOL. VITALS TAKEN. DISCHARGE INSTRUCTIOSN REVIEWED WITH PT. PT VERBALIZES UNDERSTANDING OF INSTRUCTIONS AND FOLLOW UP APPOINTMENT. PHARMACIST TO BEDSIDE TO REVIEW MEDICATIONS WITH PT. PT VERBALIZES UNDERSTANDING OF MEDICAITONS. PT STATES ALL HIS QUESTIONS HAVE BEEN ANSWERED AND THAT HE DOES NOT HAVE ANY ADDITIONAL QUESTIONS, REQUESTS OR COMPLAINTS. PT TRANSFERES SELF TO WHEELCHAIR. PT WHEELED FROM UNIT WITH ALL BELONGINGS IN HAND.
--- NOTE | 2018-07-11 16:12 | NUR ---
Heart Failure Follow up Call #1 Home number listed [phone] has been disconnected. Was able to reach patient on alternative phone. Mr. Yu states he feels good. Has heart failure education materials, including Zones form with him. He attended visit with PCP today in [place]. A referral for diploma dental assistant will be made. He states medication questions were answered by PCP. He did obtain all medications upon discharge. He is working on low sodium diet and will want to have an appointment with outpatient dj instructor in the future. I will notify [facility] dj instructor that patient is interested. Patient was also welcomed to call this service to have individual outpatient education session. He is qualified for outpatient cardiac rehabilitation and he will discuss this option with PCP.
== END 2018-07-09 15:05 | disposition home or self-care (01) | DRG 291 ==
LOC: ED 15:46 → MS 18:29 → CCU 18:29 → MS 07-07 07:40
PROVIDERS: ADMIT Student in an Organized Health Care Education/Training Program
PROC: 5A09357 Assistance with Respiratory Ventilation, Less than 24 Consecutive Hours, Continuous Positive Airway Pressure (ICD-10-PCS; principal; 2018-07-04)
DX: I50.82 Biventricular heart failure (principal); J96.01 Acute respiratory failure with hypoxia; J96.02 Acute respiratory failure with hypercapnia; I50.23 Acute on chronic systolic (congestive) heart failure; I25.10 Atherosclerotic heart disease of native coronary artery without angina pectoris; I34.0 Nonrheumatic mitral (valve) insufficiency; I48.0 Paroxysmal atrial fibrillation; I27.20 Pulmonary hypertension, unspecified; I10 Essential (primary) hypertension; E11.9 Type 2 diabetes mellitus without complications; E78.5 Hyperlipidemia, unspecified; G47.33 Obstructive sleep apnea (adult) (pediatric); E66.9 Obesity, unspecified; Z87.891 Personal history of nicotine dependence; Z88.2 Allergy status to sulfonamides; Z79.899 Other long term (current) drug therapy; Z68.38 Body mass index [BMI] 38.0-38.9, adult
CPT/HCPCS: 36415; 36600; 71045; 80048; 80053; 82803; 83036; 83735; 83880; 84484; 85025; 85610; 93005; 93010; 93306; 94640; 94660; 96374; 97116; 97162; 97165; 97535; 99285-25; J1815; J1940

== ENCOUNTER 2018-08-04 08:28 | Emergency (ER) | payer MEDICARE, MEDICAID ==
[~2018-08-04] VITALS: Ht 180.3 cm; Wt 130.6 kg
[~2018-08-04 08:28] MED LIST changes: +AMLODIPINE BESYL5 MG PO; +ASPIR 8181 MG PO; +CARVEDILOL25 MG PO; +DOXAZOSIN MESYLA8 MG PO; +ELIQUIS5 MG PO; +FUROSEMIDE80 MG PO; +METFORMIN HCL500 M1 PO; +POTASSIUM CHLO10 ME1 PO; +PRAVASTATIN SOD20 MG PO
[2018-08-04] MEDS ORDERED: LASIX80 MG PO (08:58)
--- OUTSIDE RECORDS SUMMARY | 2018-08-04 13:16 | XMS ---
PreManage Notification: ROHINI MCLEAN Security Heating Element Winder Events No recent Security Events currently on file CRITERIA MET - Group Notification CARE PROVIDERS JORDON MAYRA Hospitality Recruiter/Compliance Manager 07/07/2018-Current PHONE: [phone] Alyssa has no Care Guidelines for this patient. Eduarda VISIT COUNT (12 MO.) 2 [facility] TOTAL 2 NOTE: Visits indicate total known visits. ED/UCC VISIT TRACKING (12 MO.) 08/04/2018 08:29 [facility] TYPE: Emergency COMPLAINT: - SOB 07/04/2018 15:46 [facility] TYPE: Emergency COMPLAINT: - SOB INPATIENT VISIT TRACKING (12 MO.) 07/04/2018 18:29 [facility] TYPE: Medical Surgical COMPLAINT: - CHF DIAGNOSES: - Type 2 diabetes mellitus without complications - Other optical glass etcher (current) drug therapy - Allergy status to sulfonamides status - Acute respiratory failure with hypoxia - Biventricular heart failure - Atherosclerotic heart disease of [place] coronary artery without angina pectoris - Paroxysmal atrial fibrillation - Pulmonary hypertension, unspecified - Essential (primary) hypertension - Body mass index (BMI) 38.0-38.9, adult - Personal history of nicotine dependence - Obstructive sleep apnea (adult) (pediatric) - Acute respiratory failure with hypercapnia - Nonrheumatic mitral (valve) insufficiency - Hyperlipidemia, unspecified - Acute on chronic systolic (congestive) heart failure - Obesity, unspecified - Heart failure, unspecified [email or web address]
--- NOTE | 2018-08-04 13:51 | EKG ---
[facility] [address] [facility] [place], [place] [address] Signed Atrial fibrillation with rapid ventricular response Abnormal ECG When compared with ECG of 04-JUL-2018 19:43, No significant change was found Confirmed by FRACISCO THRASHER DO ([id number]) on 08/04/2018 1:51:10 PM Electronically Signed By: FRACISCO THRASHER DO 08/04/18 1351 PATIENT NAME: VINAYROHINI NOMI Electrocardiogram DATE OF : 54 PHYSICIAN: FRACISCO THRASHER DO REPORT #: [id number] REPORT IS CONFIDENTIAL AND NOT TO BE RELEASED WITHOUT AUTHORIZATION
[2018-08-05] MEDS ORDERED: LASIX80 MG PO (14:21)
== END 2018-08-04 13:11 | disposition home or self-care (01) ==
LOC: ED 08:28
DX: I11.0 Hypertensive heart disease with heart failure (principal); I50.9 Heart failure, unspecified; I48.91 Unspecified atrial fibrillation; E11.9 Type 2 diabetes mellitus without complications; Z87.891 Personal history of nicotine dependence; Z88.2 Allergy status to sulfonamides; Z79.899 Other long term (current) drug therapy; Z79.82 Long term (current) use of aspirin
CPT/HCPCS: 71045; 80053; 83880; 84484; 85025; 93005; 93010; 96374; 99285-25

== ENCOUNTER 2018-08-04 16:16 | Observation (INO) | payer MEDICARE, MEDICAID ==
[~2018-08-04] VITALS: Ht 180.3 cm; Wt 127.7 kg
[~2018-08-04 16:16] MED LIST changes: +LASIX80 MG PO
--- OUTSIDE RECORDS SUMMARY | 2018-08-04 18:04 | XMS ---
PreManage Notification: ROHINI MCLEAN Security Thread Cutter Tender Events No recent Security Events currently on file CRITERIA MET - Group Notification - [facility] - 2 Visits in 30 Days CARE PROVIDERS MAYRA RUVALCABA Manager School/Stamping Operator 07/07/2018-Current PHONE: [phone] Alyssa has no Care Guidelines for this patient. Eduadra VISIT COUNT (12 MO.) 3 [facility] TOTAL 3 NOTE: Visits indicate total known visits. ED/UCC VISIT TRACKING (12 MO.) 08/04/2018 16:17 [facility] TYPE: Emergency COMPLAINT: - DIFFICULTY BREATHING 08/04/2018 08:29 [facility] TYPE: Emergency COMPLAINT: - SOB 07/04/2018 15:46 [facility] TYPE: Emergency COMPLAINT: - SOB INPATIENT VISIT TRACKING (12 MO.) 07/04/2018 18:29 [facility] TYPE: Medical Surgical COMPLAINT: - CHF DIAGNOSES: - Type 2 diabetes mellitus without complications - Other halfway (current) drug therapy - Allergy status to sulfonamides status - Acute respiratory failure with hypoxia - Biventricular heart failure - Atherosclerotic heart disease of [place] coronary artery without angina pectoris - Paroxysmal [...] - Obesity, unspecified - Heart failure, unspecified [email or web address]
--- NOTE | 2018-08-04 18:49 | NUR ---
PT ADMITTED TO MEDICAL FLOOR ROOM 122 VIA STRETCHER. PT ABLE TO TRANSFER SELF TO BED WITH STAND BY ASSIST. REPORTS THAT HE IS DOING BETTER WITH BREATHING, AND FEELS MUCH BETTER WITH 1L/NC IN PLACE. PT REQUESTS DINNER ON ARRIVAL TO ROOM. KITCHEN CALLED
--- NOTE | 2018-08-04 19:19 | NUR ---
REPORT TO OSWALDO GHOTRA
--- NOTE | 2018-08-04 20:53 | NUR ---
PATIENT HAVING NO PAIN, HAS NASAL STRIPS ON TO HELP HOLD NOSTRILS OPN FROM A RECENT DEVIATED SEPTUM SURGERY.
--- NOTE | 2018-08-04 21:59 | NUR ---
VS and I&Os complete. Patient did not need anything at this time. He was sitting up on the side of bed near the [facility] with call light next to him.
--- NOTE | 2018-08-04 22:29 | NUR ---
PATIENT CALLED ABOUT HIS PUMP BEEPING AND JULY, JAVON WENT TO CHECK ON PATIENT.
--- NOTE | 2018-08-04 22:45 | NUR ---
PATIENT FEELING UNCOMFORTABLE AND A LITTLE NAUSEAUOUS. 650MG PO TYLENOL GIVEN, AND 4MG IV ZOFRAN FOR NAUSEA WHEN HE HAS HIS NERVVOUS EPISODES.
--- NOTE | 2018-08-05 00:21 | NUR ---
PATIENT RESTING QUIETLY ON HIS LEFT SIDE, EYES CLOSED, SEPIRATIONS REGULAR AND EVEN AT 18.
--- NOTE | 2018-08-05 01:32 | NUR ---
PATIENT RESTING SUPINE, RESPS 16, CALL LIGHT IN REACH. EYES CLOSED AND PATIENT APPEARS IN NO DISTRESS.
--- NOTE | 2018-08-05 03:12 | NUR ---
Patients 2'oclock vitals and I&Os complete.
--- NOTE | 2018-08-05 03:25 | NUR ---
PATIENT RESTING QUIETLY ON HIS LEFT SIDE, RESPIRATIONS REGULAR AND EVEN ON 2L/NC. EYES CLOSED AND CALL LIGHT IN REACH.
--- NOTE | 2018-08-05 05:30 | NUR ---
PATIENT HAS SLEPT WELL ALL NIGHT WITH NO PAIN AFTER TYLENOL AND NO NAUSEA OR ANXIETY AFTER ZOFRAN GIVEN. PATIENT IS ON 2L/NC BECAUSE HE SAYS IT MAKES HIM FEEL LIKE HE CAN BREATH BETTER AND HE REFUSED TO DO HIS STANDING WEIGHT THIS AM SO FAR AND WANTS TO SLEEP.
--- NOTE | 2018-08-05 06:22 | NUR ---
LEAD WAS OFF ON PT'S IV, WOKE PT TO REPLACE IT. HE DENIES FURTHER NEEDS AT THIS TIME. CALL LIGHT IS WITHIN REACH.
--- NOTE | 2018-08-05 07:29 | NUR ---
REPORT RECEIVED FROM SUPPLY SERVICE WORKER RN. PT IN BED WITH EYES CLOSED. RESPIRATIONS EQUAL AND NONLABORED. CALL LIGHT IN REACH.
--- NOTE | 2018-08-05 07:44 | NUR ---
SCALE PLACED AT BEDSIDE. PT REFUSED WEIGHT THIS AM D/T WANTING TO SLEEP MORE. WILL TRY AGAIN BEFORE BREAKFAST.
--- NOTE | 2018-08-05 10:30 | NUR ---
PT WITH SBA TO BATHROOM FOR SHOWER.
--- NOTE | 2018-08-05 12:33 | NUR ---
CALL LIGHT ANSWERED. PT REPORTING LIGHTHEADEDNES.. VITAL SIGNS TAKEN WITH BLOOD PRESSURE OF 99/70 AND PULSE OF 88 BY BUS SYSTEM OPERATOR. THIS NURSE TO BEDSIDE TO ASSESS. ATTEMPTED ORTHOSTATIV VATALS WITH SITTING BLOOD PRESSURE OF 91/73 AND PLSE OF 84. PT WAS UNABLE TO STAND FOR OTHER VITALS D/T LIGHTHEADEDNESSS AND FEELING LIKE "PASSING OUT". HEART RATE INCREASED TO 122 WHILE STANDING FOR [address] THRASHER NOTIFIED. ORDER TO DC NITRO PATCH. PT SITTING IN CHAIR. CALL LIGHT IN REACH. DR THRASHER TO BEDSIDE.
--- NOTE | 2018-08-05 12:54 | NUR ---
Tele dc'd as ordered.
--- NOTE | 2018-08-05 13:43 | NUR ---
PT REPORTS FEELING IF HIS MIND IS RACING AND WON'T SLOW DOWN, WAS IN AND SAW PT FOR THESE REPORTED SX'S ALONG WITH SOME DIZINESS. NEW ORDER RECEIVED FOR PO VISTARIL WHICH WAS ADMINISTERED AT THIS TIME -SEE EMAR. PT RESTING IN SEMIFOWLERS POSITION IN BED. VSS. CALL LIGHT AND H20 IN REACH. PT DENIES FURTHER NEEDS/CONCERNS AT THIS TIME.
--- NOTE | 2018-08-05 14:02 | EKG ---
[facility] [address] [facility] [place], [place] [address] Signed Atrial fibrillation Abnormal ECG When compared with ECG of 04-AUG-2018 08:44, No significant change was found Confirmed by FRACISCO THRASHER DO ([id number]) on 08/05/2018 2:01:59 PM Electronically Signed By: FRACISCO THRASHER DO 08/05/18 1402 PATIENT NAME: ROHINI MCLEAN NOMI Electrocardiogram DATE OF : 54 PHYSICIAN: FRACISCO THRASHER DO REPORT #: [id number] REPORT IS CONFIDENTIAL AND NOT TO BE RELEASED WITHOUT AUTHORIZATION
--- NOTE | 2018-08-05 14:13 | NUR ---
Pt sitting on the bedside and states he is feeling some anxiety. Pt was medicated about half an hour ago with vistaril. He states he belives that medication will help shortly. Pt now having a stat ekg. Sat on room air is 88% on room air, o2 replaced at 2l and sat increased to 95%. BP 110/80.
--- NOTE | 2018-08-05 14:20 | NUR ---
EKG COMPLETED WHICH APPEARS TO BE A-FIB. PT DENIES ANY CHEST PAIN OR SOB AT THIS TIME.
[2018-08-05] MEDS ORDERED: LASIX80 MG PO (14:21)
--- NOTE | 2018-08-05 14:43 | NUR ---
PT STATES "I GOT ANOTHER MENG THAT CAME OVER ME IT MAKES ME FEEL SO ANXIOUS LIKE SOMETHINGS NOT RIGHT, I WAN'T TO GET UP AND WALK." PT DENIES SOB OR DIZZINESS. PT UP WITH SBA AND FWW AMBULATES TWO LAPS IN HALLS AROUND NURSING STATIONS. PT BACK IN BED, SPOT CHECK O2 SAT 95% ON RA DIRECTLY AFTER AMBULATING. CALL LIGHT AND H20 IN REACH. PT STATES "I'M FEELING BETTER NOW I THINK THE WALKING HELPED". NO FURTHER CONCERNS OR REQUESTS VOICED.
--- NOTE | 2018-08-05 15:36 | NUR ---
MED REC COMPLETE
--- NOTE | 2018-08-05 16:18 | NUR ---
PT REPORTS ANXIETY SEEMS TO ONLY HAVE GOTTEN WORSE SINCE VISTARIL WAS ADMINISTERED AND THAT THE WALKING SEEMED TO TEMPORARILY HELP BUT THAT HIS SYMPTOMS RETURN SHORTLY AFTER. MD NOTIFIED OF PT'S S/SX'S. CALL LIGHT AND H2O IN REACH. PT AGREES TO GO ON ANOTHER WALK, JAVON AREVALO IN TO AMBULATE WITH PT.
--- NOTE | 2018-08-05 16:36 | NUR ---
MD IN TO SEE PATIENT. PT TEARFUL AT THIS TIME AND DECLINES FURTHER MEDICATION FOR SYMPTOM MANAGEMENT. MD REVIEWS EKG RESULTS AND PER MD REQUEST PASTORAL CARE NOTIFIED OF REQUEST TO COME SEE PATIENT. CALL LIGHT AND H2O IN REACH. PT DENIES FURTHER NEEDS/CONCERNS.
--- NOTE | 2018-08-05 17:20 | NUR ---
Clem with pastoral care arrives to meet with patient.
--- NOTE | 2018-08-05 17:43 | NUR ---
PT IS STRUGGLING WITH LONLINESS. ASKED PT ABOUT WHAT STEPS COULD BE TAKEN TO COPE WITH THAT AND DISCUSSION OCCURRED. WILL VISIT PT AGAIN TOMORROW FOR FOLLOW UP. ALSO HAS PERMISSION TO CONTACT A MUTUEL CLERK IN [place] TO SEE ABOUT POSSIBLE CONNECTION.
--- NOTE | 2018-08-05 18:55 | NUR ---
PT RESTING IN CHAIR WITH EYES CLOSED AND RESPIRATIONS EVEN AND UNLABORED. CALL LIGHT AND FRESH H2O IN REACH.
--- NOTE | 2018-08-05 19:26 | NUR ---
PATIENT HAS BEEN SLEEPING IN HIS CHAIR ON AND OFF ALL DAY.
--- NOTE | 2018-08-05 19:31 | NUR ---
RECIEVED BEDSIDE REPORT FROM JHONATHAN GHOTRA. PATIENT RESTING IN CHAIR. 1L VIA NC, NO SIGNS OF DISTRESS. JHONATHAN GHOTRA ASKED PATIENT IF PT WOULD LIKE TO LAY DOWN IN BED, PATIENT STATED THEY WOULD LIKE TO STAY IN THE CHAIR AT THIS TIME. WHITE BOARD UPDATED. CALL LIGHT WITHIN REACH.
--- NOTE | 2018-08-05 20:55 | EKG ---
[facility] [address] [facility] [place] [address] Signed Atrial fibrillation Prolonged QT Abnormal ECG When compared with ECG of 04-AUG-2018 16:45, QT has lengthened Confirmed by FRACISCO THRASHER DO ([id number]) on 08/05/2018 8:55:10 PM Electronically Signed By: FRACISCO THRASHER DO 08/05/18 2055 PATIENT NAME: ROHINI MCLEAN NOMI Electrocardiogram DATE OF : 54 PHYSICIAN: FRACISCO THRASHER DO REPORT #: [id number] REPORT IS CONFIDENTIAL AND NOT TO BE RELEASED WITHOUT AUTHORIZATION
--- NOTE | 2018-08-05 21:15 | NUR ---
ASSESSMENT COMPLETE, REFER TO ASSESSMENT. MEDICATIONS ADMINISTERED PER ORDER. PATIENT DENIES HAVING SHORTNESS OF BREATH, CHEST PAIN, OR DIFFICULTY BREATHING. PATIENT REPORTS HAVING SHORTNESS OF BREATH DURING PATIENT'S STATED "EPISODES", WHEN THIS RN ASKED PT ABOUT SUCH "EPISODES", PATIENT STATED "IT'S WHEN I FEEL ANXIOUS", PATIENT DENIES FEELING ANXIOUS AT THIS TIME. PT DENIES HAVING NUMBNESS AND TINGLING IN EXTREMITIES. ACTIVE BOWEL TONES PRESENT, PT PASSING FLATUS. 2+ EDEMA NOTED IN BLE, ELEVATED ON PILLOW. URINAL EMPTIED, URINAL AT BEDSIDE. CLEAR LUNG SOUND NOTED. IV ASSESSED, WNL. CALL LIGHT WITHIN REACH, PROVIDED EDUCATION TO PATIENT ABOUT IT'S USE, PATIENT EXPRESSED UNDERSTANDING. PATIENT DENIES FURTHER NEEDS AT THIS TIME.
--- NOTE | 2018-08-06 00:38 | NUR ---
ROUNDED ON PATIENT RESTING IN BED WITH EYES CLOSED, RESPIRATORY RATE IS EVEN AND UNLABORED. CALL LIGHT WITHIN REACH.
--- NOTE | 2018-08-06 02:28 | NUR ---
ROUNDED ON PATIENT RESTING IN BED WITH EYES CLOSED, RESPIRATORY RATE IS EVEN AND UNLABORED. CALL LIGHT WITHIN REACH. URINAL AT BEDSIDE EMPTIED.
--- NOTE | 2018-08-06 04:50 | NUR ---
ROUNDED ON PATIENT RESTING IN BED ON RIGHT SIDE WITH EYES CLOSED, RESPIRATORY RATE IS EVEN AND UNLABORED. URINAL AT BEDSIDE EMPTIED. CALL LIGHT WITHIN REACH.
--- NOTE | 2018-08-06 05:45 | NUR ---
ASSESSMENT COMPLETE, REFER TO ASSESSMENT. PATIENT DENIES PAIN, SHORTNESS OF BREATH, DIFFICULTY BREATHING OR CHEST PAIN. PATIENT DENIES HAVING ANXIETY. 2+ EDEMA NOTED IN BLE. 1L VIA NC, NO SIGNS OF DISTRESS. CLEAR LUNG SOUNDS NOTED. PATIENT DENIES ANYMORE NEEDS AT THIS TIME. CALL LIGHT WITHIN REACH. BOARDER HAND IN ROOM OBTAINING VITALS AND INTAKE AND OUTPUT.
--- NOTE | 2018-08-06 07:21 | NUR ---
DR. THRASHER AWARE OF URINE OUTPUT, NO NEW ORDERS.
--- NOTE | 2018-08-06 07:28 | NUR ---
PT RESTING ON RIGHT LATERAL SIDE IN BED, RESPIRATIONS EVEN AND UNLABORED. PT APPEARS TO BE SLEEPING COMFORTABLY. CALL LIGHT AND H20 IN REACH. BEDSIDE REPORT RECEIVED FROM PAR[place]ISE MARIN.
--- NOTE | 2018-08-06 08:55 | NUR ---
PT RESTING ON RIGHT LATERAL SIDE IN BED, PT ALERT TO VOICE, O2 SAT IS 93% ON 1LPNC. PT ASSISTED UP TO CHAIR FOR BREAKFAST. ASSESSMENT COMPLETED AND AM MEDS ADMINISTERED. VSS. CALL LIGHT AND H2O IN REACH. PT DENIES FURTHER NEEDS/CONCERNS.
[2018-08-06] MEDS ORDERED: LISINOPRIL2.5 MG PO (09:28)
[2018-08-06] MEDS ORDERED: CARVEDILOL25 MG PO (09:28)
[2018-08-06] MEDS ORDERED: SERTRALINE HCL25 MG PO (09:29)
[2018-08-06] MEDS ORDERED: LASIX80 MG PO (09:30)
[2018-08-06] MEDS ORDERED: MELATONIN5 M2 PO (09:31)
--- NOTE | 2018-08-06 09:59 | NUR ---
PATIENT SITTING UP IN CHAIR. VISITOR IN ROOM. VITAL SIGNS AND I&O DONE. LINENS CHANGED. CALL LIGHT WITHIN REACH. NO OTHER NEEDS AT THIS TIME
[2018-08-06] MEDS ORDERED: ZYPREXA10 MG PO (16:46)
--- NOTE | 2018-08-06 18:23 | NUR ---
YESTERDAY AT MY VISIT WITH THE PT WE HAD TALKED ABOUT A GRIEVANCE AND APPEALS SPECIALIST COMING TO VISIT FROM HIS COMMUNITY. PT GAVE ME PERMISSION OVER THE PHONE TO PASS ALONG HIS PHONE NUMBER TO A LOCAL GRIEVANCE AND APPEALS SPECIALIST IN [place]. I WILL BE PASSING HIS NUMBER ALONG TO MOON GARCIA FROM [facility] IN [place]. I HAVE ALREADY PHONED MOON AND LEFT A MESSAGE. I AM AWAITING A CALL BACK. THE PT HAD ALSO REQEUSTED A FOLLOW UP VISIT FROM A MARINE ENGINE MECHANIC, BUT WAS DISCHARGED BEFORE I CAME IN TODAY. THE PURPOSE OF THIS PHONE CALL WAS TO FOLLOW UP REGARDING THE PT'S REQUEST FOR A MARINE ENGINE MECHANIC VISIT TODAY.
== END 2018-08-06 10:40 | disposition home or self-care (01) ==
LOC: ED 16:16 → MS 16:18
PROVIDERS: ADMIT Student in an Organized Health Care Education/Training Program
DX: I11.0 Hypertensive heart disease with heart failure (principal); I50.23 Acute on chronic systolic (congestive) heart failure; I48.91 Unspecified atrial fibrillation; F41.1 Generalized anxiety disorder; E11.9 Type 2 diabetes mellitus without complications; E78.5 Hyperlipidemia, unspecified; I25.10 Atherosclerotic heart disease of native coronary artery without angina pectoris; I34.0 Nonrheumatic mitral (valve) insufficiency; E66.9 Obesity, unspecified; Z87.891 Personal history of nicotine dependence; Z85.528 Personal history of other malignant neoplasm of kidney; Z88.2 Allergy status to sulfonamides; Z79.02 Long term (current) use of antithrombotics/antiplatelets; Z79.82 Long term (current) use of aspirin; Z79.899 Other long term (current) drug therapy; Z68.39 Body mass index [BMI] 39.0-39.9, adult
CPT/HCPCS: 36415; 80048; 83735; 83880; 84484; 85025; 93005; 93010; 96374; 96375; 99285-25; G0378; J2405; Q0177

== ENCOUNTER 2018-08-06 15:54 | Emergency (ER) | payer MEDICARE, MEDICAID ==
[~2018-08-06] VITALS: Ht 180.3 cm; Wt 127.7 kg
[~2018-08-06 15:54] MED LIST changes: +LISINOPRIL2.5 MG PO; +MELATONIN5 M2 PO; +SERTRALINE HCL25 MG PO
--- OUTSIDE RECORDS SUMMARY | 2018-08-06 15:56 | XMS ---
PreManage Notification: ROHINI MCLEAN Security Cell Pourer Events No recent Security Events currently on file CRITERIA MET - Group Notification - [facility] - 2 Visits in 30 Days CARE PROVIDERS MAYRA RUVALCABA Public Utilities Sales Representative/Assistant Professor Of Religion 07/07/2018-Current PHONE: [phone] Alyssa has no Care Guidelines for this patient. Eduarda VISIT COUNT (12 MO.) 4 [facility] TOTAL 4 NOTE: Visits indicate total known visits. ED/C VISIT TRACKING (12 MO.) 08/06/2018 15:54 [facility] TYPE: Emergency COMPLAINT: - SOB 08/04/2018 16:17 [facility] TYPE: Emergency COMPLAINT: - DIFFICULTY BREATHING 08/04/2018 08:29 [facility] TYPE: Emergency COMPLAINT: - SOB 07/04/2018 15:46 [facility] TYPE: Emergency COMPLAINT: - SOB INPATIENT VISIT TRACKING (12 MO.) 08/04/2018 16:18 [facility] TYPE: Observation COMPLAINT: - HEART FAILURE 07/04/2018 18:29 [facility] TYPE: Medical Surgical COMPLAINT: - CHF DIAGNOSES: - Type 2 diabetes mellitus without complications - Other alf (current) drug therapy - Allergy status to sulfonamides status - Acute respiratory failure with hypoxia - Biventricular heart failure - Atherosclerotic heart disease of [place] coronary artery without angina pectoris [...] - Obesity, unspecified - Heart failure, unspecified [email or web address]
[2018-08-06] MEDS ORDERED: ZYPREXA10 MG PO (16:46)
== END 2018-08-06 17:12 | disposition home or self-care (01) ==
LOC: ED 15:54
DX: F41.9 Anxiety disorder, unspecified (principal); I10 Essential (primary) hypertension; E78.00 Pure hypercholesterolemia, unspecified; E11.9 Type 2 diabetes mellitus without complications; Z85.528 Personal history of other malignant neoplasm of kidney; Z88.2 Allergy status to sulfonamides; Z79.899 Other long term (current) drug therapy; Z79.82 Long term (current) use of aspirin
CPT/HCPCS: 99283

== ENCOUNTER 2018-08-16 16:13 | Emergency (ER) | payer MEDICARE, MEDICAID ==
[~2018-08-16] VITALS: Ht 180.3 cm; Wt 127.5 kg
[~2018-08-16 16:13] MED LIST changes: +ZYPREXA10 MG PO
--- OUTSIDE RECORDS SUMMARY | 2018-08-16 16:16 | XMS ---
PreManage Notification: ROHINI MCLEAN Security Investigation Officer Events No recent Security Events currently on file CRITERIA MET - Group Notification - [facility] - Has Care Guidelines - [facility] - 2 Visits in 30 Days CARE PROVIDERS MAYRA RUVALCABA Alteration Hand/Care Provider 07/07/2018-Current PHONE: [phone] Ritesh Vick [facility] [place] 08/08/2018-Current PHONE: Unknown Alyssa has no Care Guidelines for this patient. Care History Medical/Surgical 08/08/2018 [facility] - Patient is currently established with [facility]. If patient is seen in the ED during business hours. Please contact CHWs at [facility]. Care Recommendation: This patient has had 5 or more Emergency Department visits in the last 12 months.\T\nbsp; Patient requires education on the scope and purpose of the ED as an acute care provider not a Primary Care Provider and should not be utilized for chronic conditions.\T\nbsp; These are guidelines and the provider should exercise clinical judgment when providing care. E.D. VISIT COUNT (12 MO.) 5 BRUCE Yap TOTAL 5 NOTE: Visits indicate total known visits. ED/UCC VISIT TRACKING (12 MO.) 08/16/2018 16:13 [facility] [place] TYPE: Emergency COMPLAINT: - MODERATE CHEST PAIN/LEG SWELLING 08/06/2018 15:54 [facility] [place] TYPE: Emergency COMPLAINT: - SOB DIAGNOSES: - [facility] (current) use of aspirin - Anxiety disorder, unspecified - Pure hypercholesterolemia, unspecified - Other intermediate (current) drug therapy - Allergy status to sulfonamides status - Type 2 diabetes mellitus without complications - Essential (primary) hypertension - Shortness of breath - Personal history of other malignant neoplasm of kidney 08/04/2018 16:17 [facility] [place] TYPE: Emergency COMPLAINT: - DIFFICULTY BREATHING 08/04/2018 08:29 [facility] [place] TYPE: Emergency COMPLAINT: - SOB DIAGNOSES: - Shortness of breath - Personal history of nicotine dependence - Other intermediate (current) drug therapy - Heart failure, unspecified - Unspecified atrial fibrillation - [facility] (current) use of aspirin - Hypertensive heart disease with heart failure - Allergy status to sulfonamides status - Type 2 diabetes mellitus without complications 07/04/2018 15:46 [facility] [place] TYPE: Emergency COMPLAINT: - SOB INPATIENT VISIT TRACKING (12 MO.) 08/04/2018 16:18 [facility] [place] TYPE: Observation COMPLAINT: - HEART FAILURE DIAGNOSES: - Other joint terminal attack controller (current) drug therapy - [facility] (current) use of aspirin - 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 - Shortness of breath - Personal history of nicotine dependence - Acute on chronic systolic (congestive) heart failure - Atherosclerotic heart disease of [place] coronary artery without angina pectoris - Body mass index (BMI) 39.0-39.9, adult - Type 2 diabetes mellitus without complications - Unspecified atrial fibrillation - Hypertensive heart disease with heart failure - Obesity, unspecified - Allergy status to sulfonamides status - Personal history of other malignant neoplasm of kidney - Nonrheumatic mitral (valve) insufficiency - Generalized anxiety disorder - Hyperlipidemia, unspecified 07/04/2018 18:29 [facility] [place] TYPE: Medical Surgical COMPLAINT: - CHF DIAGNOSES: - Type 2 diabetes mellitus without complications - Other joint terminal attack controller (current) drug therapy - Allergy status to sulfonamides status - Acute respiratory failure with hypoxia - Biventricular heart failure - Atherosclerotic heart disease of [place] coronary artery without angina pectoris - Paroxysmal [...] - Obesity, unspecified - Heart failure, unspecified [email or web address]
[2018-08-16] MEDS ORDERED: ZESTRIL10 MG PO (16:29)
--- NOTE | 2018-08-17 06:19 | EKG ---
[facility] [address] [facility] [place] [address] Signed Atrial fibrillation with rapid ventricular response Abnormal ECG When compared with ECG of 05-AUG-2018 14:14, QT has shortened Confirmed by AIME NESS MD ([id number]) on 08/17/2018 6:19:00 AM Electronically Signed By: AIME NESS MD 08/17/18 0619 PATIENT NAME: VINAYROHINI NOMI Electrocardiogram DATE OF : 54 PHYSICIAN: AIME NESS MD REPORT #: [id number] REPORT IS CONFIDENTIAL AND NOT TO BE RELEASED WITHOUT AUTHORIZATION
== END 2018-08-16 18:49 | disposition home or self-care (01) ==
LOC: ED 16:13
DX: I11.0 Hypertensive heart disease with heart failure (principal); I50.9 Heart failure, unspecified; E11.9 Type 2 diabetes mellitus without complications; I48.91 Unspecified atrial fibrillation; Z88.2 Allergy status to sulfonamides; Z79.899 Other long term (current) drug therapy
CPT/HCPCS: 80053; 83880; 84484; 85025; 93005; 93010; 96374; 99285-25

== ENCOUNTER 2020-09-17 14:04 | Emergency (ER) | payer MEDICARE, MEDICAID ==
[~2020-09-17] VITALS: Ht 180.3 cm; Wt 127.5 kg
[~2020-09-17 14:04] MED LIST changes: +ZESTRIL10 MG PO
--- OUTSIDE RECORDS SUMMARY | 2020-09-17 14:14 | XMS ---
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 Care History Medical/Surgical 08/08/2018 [facility] - Patient is currently established with [facility]. If patient is seen in the ED during business hours. Please contact CHWs at [facility]. Care Recommendation: This patient has had 5 [...] providing care. E.D. VISIT COUNT (12 MO.) 1 BRUCE Yap TOTAL 1 NOTE: Visits indicate total known visits. ED/UCC VISIT TRACKING (12 MO.) 09/17/2020 14:04 BRU[facility] [place] TYPE: Emergency COMPLAINT: - CARDIAC ARREST INPATIENT VISIT TRACKING (12 MO.) No inpatient visits to display in this time frame [email or web address]
--- NOTE | 2020-09-17 16:40 | NUR ---
CALLED TO ED BY CHAPLAIN GONCALVES PT CODED BUT WAS RESUSCITATED AND WAS STABLIZED FOR LIFE FLIGHT. INTRODUCED MYSELF TO PT'S BROTHER AND A FRIEND ACCOMPANYING HIM. 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 MADE MYSELF AVAILABLE FOR QUESTIONS AND SMALL TALK. EXPRESSED NO NEEDS, BUT APPRECIATION FOR THE VISIT.
--- NOTE | 2020-09-17 19:02 | NUR ---
PT WAS NOT TRANSFERRED HE WAS NONRESPONSIVE. BROTHER ABDIFATAH CONSULTED WITH FAMILY AND DECISION WAS MADE TO REMOVE VENTILATOR. DAUGHTER FROM [place] CALLED AND SPOKE TO THE PT. PT PASSED SHORTLY THEREAFTER. I OFFERED A PRAYER OF COMMITTAL. ABDIFATAH EXPRESSED APPRECIATION TO ALL OF THE STAFF FOR EFFORTS MADE AND CARE GIVEN. FAMILY HAD PREVIOUSLY USED [facility] AND REQUESTED THEY BE CONTACTED, WHICH I DID. BODY WAS RELEASED TO [facility]. [id number].
--- NOTE | 2020-09-18 08:10 | EKG ---
[facility] [address] [facility] [place] [address] Signed Sinus rhythm with 1st degree AV block Nonspecific intraventricular block T wave abnormality, consider inferior ischemia Abnormal ECG When compared with ECG of 17-SEP-2020 14:21, (Unconfirmed) No significant change was found Confirmed by AIME NESS MD ([id number]) on 09/18/2020 8:10:02 AM Electronically Signed By: AIME NESS MD 09/18/20 0810 PATIENT NAME: ROHINI MCLEAN NOMI Electrocardiogram DATE OF : 54 PHYSICIAN: AIME NESS MD REPORT #: [id number] REPORT IS CONFIDENTIAL AND NOT TO BE RELEASED WITHOUT AUTHORIZATION
--- NOTE | 2020-09-18 08:10 | EKG ---
[facility] [address] [place] [address] Signed Sinus rhythm with 1st degree AV block Rightward axis Nonspecific intraventricular block ST elevation, consider inferior injury or acute infarct ACUTE MN / STEMI Consider right ventricular involvement in acute inferior infarct Abnormal ECG When compared with ECG of 17-SEP-2020 14:26, (Unconfirmed) Nonspecific T wave abnormality has replaced inverted T waves in Inferior leads Confirmed by AIME NESS MD ([id number]) on 09/18/2020 8:10:33 AM Electronically Signed By: AIME NESS MD 09/18/20 0810 PATIENT NAME: ROHINI MCLEAN Electrocardiogram DATE OF : 54 PHYSICIAN: AIME NESS MD REPORT #: [id number] REPORT IS CONFIDENTIAL AND NOT TO BE RELEASED WITHOUT AUTHORIZATION
--- NOTE | 2020-09-18 08:10 | EKG ---
[facility] [address] [facility] [place] [address] Signed Sinus rhythm with 1st degree AV block Rightward axis Nonspecific intraventricular block Abnormal ECG When compared with ECG of 16-AUG-2018 16:20, Sinus rhythm has replaced Atrial fibrillation QRS duration has increased T wave inversion now evident in Inferior leads QT has lengthened Confirmed by AIME NESS MD ([id number]) on 09/18/2020 8:09:52 AM Electronically Signed By: AIME NESS MD 09/18/20 0810 PATIENT NAME: ROHINI MCLEAND Electrocardiogram DATE OF : 54 PHYSICIAN: AIME NESS MD REPORT #: [id number] REPORT IS CONFIDENTIAL AND NOT TO BE RELEASED WITHOUT AUTHORIZATION
== END 2020-09-17 18:30 ==
LOC: ED 14:04
DX: I46.9 Cardiac arrest, cause unspecified (principal); I11.0 Hypertensive heart disease with heart failure; I50.9 Heart failure, unspecified; E78.00 Pure hypercholesterolemia, unspecified; E11.9 Type 2 diabetes mellitus without complications; Z20.822 Contact with and (suspected) exposure to COVID-19; I48.91 Unspecified atrial fibrillation; I25.10 Atherosclerotic heart disease of native coronary artery without angina pectoris; G47.30 Sleep apnea, unspecified; Z88.2 Allergy status to sulfonamides; Z79.899 Other long term (current) drug therapy; Z79.82 Long term (current) use of aspirin
CPT/HCPCS: 36415; 36600; 51702; 70450; 71045; 80048; 80053; 82803; 83605; 83880; 84484; 85025; 92950; 93005; 93010; 94002; 99285-25; J0171; J0282; J3010; J7030; J7121; U0003